=== PATIENT | female | born 1945 ===

== ENCOUNTER 2022-03-03 15:10 | Outpatient (CLI) | payer MEDICARE, SELFPAY ==
--- NOTE | 2022-03-03 | DI.US_ITS ---
Exam(s) US ABDOMEN RENAL EXAM: US ABDOMEN RENAL CLINICAL HISTORY: RUQ ABD PAIN, R10.11,? BILIARY INVOLVEMENT TECHNIQUE: Ultrasound of complete upper abdomen performed using standard protocol. COMPARISON: No exams were available for comparison FINDINGS: There is no ascites evident. LIVER: There are multiple benign-appearing cysts in the liver. The largest measures 3.5 x 2.9 x 3.5 cm, located in the right lobe. The largest in the left lobe measures 3.6 x 3.2 x 2.7 cm. GALLBLADDER/BILIARY: There are no gallstones. No gallbladder wall edema nor pericholecystic fluid. The common hepatic duct isupper normal diameter, measuring 6mm at the level of sancho hepatis. PANCREAS: There is no evidence of pancreatic mass nor dilatation of the pancreatic duct. SPLEEN: The spleen is not enlarged and there are no intrasplenic lesions evident. KIDNEYS:Kidneys exhibit normal size with no evidence of solid mass, calculus, nor hydronephrosis. No cortical cysts evident. ABDOMINAL AORTA: There is no evidence of abdominal aortic aneurysm. IVC: Normal diameter where visualized. IMPRESSION: 1. No evidence of cholelithiasis. CBD diameter is upper normal, measuring 6 millimeters. 2. There are multiple benign-appearing cysts in the liver. The largest measures 3.6 cm. 3. No other significant findings in the upper abdomen and no ascites. DATA REPOSITORY:
== END 2022-03-03 15:30 ==
PROVIDERS: Visit Provider Physician Assistant Medical
DX: R10.11 Right upper quadrant pain (principal); K76.89 Other specified diseases of liver
CPT/HCPCS: 76770; 76700

== ENCOUNTER 2022-03-03 15:28 | Outpatient (REF) | payer MEDICARE, SELFPAY ==
[2022-03-03 17:00] LABS: ALT 27 U/L (14-59); AST 25 U/L (15-37); Albumin 3.9 g/dL (3.4-5.0); Alkaline Phosphatase 84 U/L (46-116); Anion Gap 10.5 mmol/L (3-11); BUN 13 mg/dL (7-18); Bilirubin, Total 0.7 mg/dL (0.2-1.0); CO2 26.5 mmol/L (21.0-32.0); CREATININE 0.6 mg/dL (0.55-1.02); Chloride 96 mmol/L (98-107); Glucose 130 mg/dL (74-106); Potassium 4.6 mmol/L (3.5-5.1); Sodium 133 mmol/L (136-145); Total Protein 7.5 g/dL (6.4-8.2)
[2022-03-03 18:09] LABS: Abs Immature Grans 0.01 10^3/uL (0.0-0.06); Absolute Basophil Count 0.04 10^3/uL (0.0-0.2); Absolute Lymphocyte Count 1.05 10^3/uL (1.2-3.4); Absolute Monocyte Count 0.47 10^3/uL (0.1-0.8); Absolute Neutrophil Count 5.21 10^3/uL (1.2-6.7); Basophils % 0.6; Eosinophils % 1.5; Immature Grans % 0.1; Lymphocytes % 15.3; MCH 30.7 pg (27.0-33.0); MCHC 34.2 % (32.0-36.0); MCV 90 fL (80-95); MPV 12.1 fL (8.0-11.0); Monocytes % 6.8; Neutrophils % 75.7; Platelet Count 294 10^3/uL (130-400); RBC 4.24 10^6/uL (3.93-5.22); RDW 11.9 % (11.7-14.6); RDW-SD 38.5 fL; WBC 6.88 10^3/uL (4.4-10.8)
== END 2022-03-03 15:29 | disposition home or self-care (01) ==
LOC: LBN 15:28
PROVIDERS: Visit Provider Physician Assistant Medical
DX: R10.11 Right upper quadrant pain (principal)
CPT/HCPCS: 80053; 85025